=== PATIENT | female | born 1985 | race Caucasian/White ===

== ENCOUNTER 2024-12-30 16:29 | Inpatient (IN) | payer MEDICAID ==
[~2024-12-30] VITALS: Ht 170.2 cm; Wt 72.2 kg
[2024-12-30] VITALS (17 sets, daily range): BP systolic 89–128; BP diastolic 60–100
[2024-12-30 16:54] LABS: BASOPHILS ABSOLUTE AUTO 0.04 K/mm3 (0.00-0.23); BASOPHILS PERCENT AUTO 1 % (0-2); EOSINOPHILS ABSOLUTE AUTO 0.21 K/mm3 (0.00-0.68); EOSINOPHILS PERCENT AUTO 3 % (0-6); Hematocrit 33.8 % (33.0-51.0); Hemoglobin 10.4 g/dL (11.5-16.0); IMMATURE GRAN ABSOLUTE AUTO 0.01 K/mm3 (0.00-0.10); IMMATURE GRAN PERCENT AUTO 0 % (0-1); LYMPHOCYTES ABSOLUTE AUTO 2.95 K/mm3 (0.84-5.20); LYMPHOCYTES PERCENT AUTO 41 % (21-46); MONOCYTES ABSOLUTE AUTO 0.55 K/mm3 (0.16-1.47); MONOCYTES PERCENT AUTO 8 % (4-13); Mean Corpuscular HGB Conc 30.8 g/dL (31.5-36.5); Mean Corpuscular Volume 79 fL (80-100); NEUTROPHILS ABSOLUTE AUTO 3.45 K/mm3 (1.96-9.15); NEUTROPHILS PERCENT AUTO 48 % (41-73); NRBC ABSOLUTE 0.00 K/mm3 (0.00-0.02); NRBC Auto 0.0 /100 WBC (0.0-0.2); Platelet Count 337 K/mm3 (150-400); RDW Coefficient Variation 16.7 % (11.7-14.2); RDW Standard Deviation 48.5 fL (35.1-46.3)
[2024-12-30 17:21] LABS: Alanine Aminotransfer (ALT/SGP 30.0 U/L (12-78); Albumin, Blood 3.7 g/dL (3.4-5.0); Albumin/Globulin Ratio 0.9 (0.8-1.8); Anion Gap 10.0 mmol/L (3-11); Aspartate Aminotrans (AST/SGOT 32.0 U/L (12-37); Bilirubin, Total 0.4 mg/dL (0.1-1.0); Blood Urea Nitrogen 21.0 mg/dL (8-24); CO2, Blood 25.0 mmol/L (21-32); Calcium, Blood 9.2 mg/dL (8.5-10.1); Chloride, Blood 104.0 mmol/L (98-108); Creatinine, Blood 0.5 mg/dL (0.40-1.00); Globulin, Blood 3.9 g/dL (2.2-4.0); Glucose, Blood 217.0 mg/dL (70-99); Potassium, Blood 4.1 mmol/L (3.5-5.5); Sodium, Blood 135.0 mmol/L (136-145); Total Protein, Blood 7.6 g/dL (6.4-8.2)
[2024-12-30] MEDS ORDERED: Midazolam HCL 50 MG in NS 40 ML IV PRN (17:45)
[2024-12-30] MEDS ORDERED: FLU VACC TS2025-26(6MOS UP)/PF 45 MCG/0.5 ML SYRINGE IM SCH (18:25)
[2024-12-30] MEDS ORDERED: Etomidate 2MG / ML 10ML Vial XX ONE (20:12)
[2024-12-30] MEDS ORDERED: SuccINYLCHOLINE Chloride 100 MG/5 ML 5MLSYR IV ONE (20:12)
[2024-12-30] MEDS ORDERED: Midazolam HCl 1MG / ML 2ML Vial XX ONE (20:12)
[2024-12-30] MEDS ORDERED: Propofol 10mg/ml 20 ml Vial (Procedural) IV ONE (20:12)
[2024-12-30] MEDS ORDERED: Rocuronium Bromide 10 MG/ML 5ML Injection IV ONE (20:12)
[2024-12-30] MEDS ORDERED: INSULANI SC ×2 (20:21→20:22)
[2024-12-30] MEDS ORDERED: ADMELOG100 UNIT/2 SC ×2 (20:24)
[2024-12-30] MEDS ORDERED: LATUDA20 M1 PO (20:25)
[2024-12-30] MEDS ORDERED: MELA3 PO (20:25)
[2024-12-31] VITALS (44 sets, daily range): BP systolic 74–132; BP diastolic 52–95
[2024-12-31] MEDS ORDERED: Hydrogen Peroxide 1.5 % Solution MT SCH
--- NOTE | 2024-12-31 04:26 | NUR ---
SEDATION TITRATED DOWN TO PROPOFOL AT 45 MCG/KG/MIN, FENT GTT 50 MCG. PT WAS AT A RASS OF -1/-2. AFTER REPOSITIONING PT, SHE WOKE UP AND BEGAN PULLING AGAINST RESTRAINTS. MYSELF AND ANOTHER RN AT BEDSIDE. PT WAS TRYING TO TALK AROUND TUBE, WE GAVE HER A PAPER AND PEN TO TRY AND BETTER COMMUNICATE. I ASKED THE PT IF SHE RECOGNIZED HER PARTNER, SHE NODDED YES, SHE ANSWERED TO HER NAME, BUT SHOOK HER HEAD "NO: WHEN ASKED IF SHE REMEMBERED WHAT HAPPENED. I EXPLAINED TO HER THE SITUATION AND EDUCATED HER ON THE PURPOSE OF THE ET TUBE. SHE WROTE THAT SHE WAS HOT AND UNCOMFORTABLE. SHE WAS AFEBRILE. WE PLACED A COOL CLOTH ON HER HEAD AND PLACED A FAN NEAR HER. WHEN ASKED IF THAT HELPED SHE NODDED "YES". SHE AGAIN BEGAN TO QUICKLY REACH FOR ETT. SOFT RESTRAINTS WERE ON AND SHE WAS PULLING AGAINST THEM WHILE TRYING TO SCOOT HERSELF DOWN CLOSER TO HER HANDS AT ONE POINT SHE SAT COMPLETELTY UP AND TRIED TO GRAB THE TUBE. DURING THIS EVENT HER SEDATION WAS BEING TITRATED UP WITH LITTLE EFFECT. VERSED WAS RESTARTED BRIEFLY TO HELP REACH A SAFE LEVEL OF SEDATION. ONCE RASS OF -1/-2 WAS ACHIEVED, VERSED WAS TITRATED OFF AND PROPOFOL WAS BUMPED BACK DOWN TO 60 MCG/KG/MIN. PT IS NOT RESTING PEACEFULLY IN BED, TOLERATING VENT, NOT PULLING AGAINST RESTRAINTS, VSS. PARTNER IS AT BEDSIDE. SEE FLOW SHEET FOR TITRATIONS.
[2024-12-31 04:36] LABS: BASOPHILS ABSOLUTE AUTO 0.03 K/mm3 (0.00-0.23); BASOPHILS PERCENT AUTO 0 % (0-2); EOSINOPHILS ABSOLUTE AUTO 0.00 K/mm3 (0.00-0.68); EOSINOPHILS PERCENT AUTO 0 % (0-6); Hematocrit 32.2 % (33.0-51.0); Hemoglobin 9.9 g/dL (11.5-16.0); IMMATURE GRAN ABSOLUTE AUTO 0.03 K/mm3 (0.00-0.10); IMMATURE GRAN PERCENT AUTO 0 % (0-1); LYMPHOCYTES ABSOLUTE AUTO 0.87 K/mm3 (0.84-5.20); LYMPHOCYTES PERCENT AUTO 10 % (21-46); MONOCYTES ABSOLUTE AUTO 0.31 K/mm3 (0.16-1.47); MONOCYTES PERCENT AUTO 4 % (4-13); Mean Corpuscular HGB Conc 30.7 g/dL (31.5-36.5); Mean Corpuscular Volume 80 fL (80-100); NEUTROPHILS ABSOLUTE AUTO 7.15 K/mm3 (1.96-9.15); NEUTROPHILS PERCENT AUTO 85 % (41-73); NRBC ABSOLUTE 0.00 K/mm3 (0.00-0.02); NRBC Auto 0.0 /100 WBC (0.0-0.2); Platelet Count 310 K/mm3 (150-400); RDW Coefficient Variation 16.6 % (11.7-14.2); RDW Standard Deviation 48.2 fL (35.1-46.3)
--- NOTE | 2024-12-31 05:07 | NUR ---
SHIFT SUMMARY PT INTUBATED/SEDATED ON PROPOFOL 60 MCG AND FENT GTT 50 MCG. RASS -2. SEE PREVOUS NOTE FOR IN-DEPTH DETAIL OF EVENT. PT RESPONDS TO PAINFUL STIMULI. HR 70-8'S, BP STABLE, SINUS RHYTHM, VENT-AC/VC 14/40/5/30%. TOLERATING VENT, SATS >94%. OGT CLAMPED. DAVIS IN PLACE AND DRAINING CLEAR YELLOW URINE. CARE MANAGE MENT CONSULT PLACED.
[2024-12-31 05:13] LABS: Anion Gap 11.0 mmol/L (3-11); Blood Urea Nitrogen 29.0 mg/dL (8-24); CO2, Blood 22.0 mmol/L (21-32); Calcium, Blood 9.2 mg/dL (8.5-10.1); Chloride, Blood 106.0 mmol/L (98-108); Creatinine, Blood 0.63 mg/dL (0.40-1.00); Glucose, Blood 278.0 mg/dL (70-99); Potassium, Blood 4.3 mmol/L (3.5-5.5); Sodium, Blood 135.0 mmol/L (136-145)
[2024-12-31] MEDS ORDERED: Cetylpyridinium Chloride 1 EA MISC MT SCH (08:00)
[2024-12-31] MEDS ORDERED: Enoxaparin 40 MG/0.4 ML SYR SC SCH (09:00)
[2024-12-31 11:03] LABS: Ferritin, Serum 13.0 ng/mL (8-252); Total Iron Binding Capacity 428.0 ug/dL (250-450)
[2024-12-31] MEDS ORDERED: Ondansetron HCl 2 MG / ML 2ML Vial ONE (11:19)
[2024-12-31] MEDS ORDERED: Albuterol 2.5 MG/3 ML VIAL ONE (11:20)
[2024-12-31] MEDS ORDERED: Ondansetron HCl 2 MG / ML 2ML Vial IV PRN (11:25)
[2024-12-31] MEDS ORDERED: Albuterol 2.5 MG/3 ML VIAL INH PRN (11:25)
[2024-12-31] MEDS ORDERED: DiphenhydrAMINE HCl 50 MG/ML 1ML Vial IV PRN ×2 (12:20→12:40)
[2024-12-31] MEDS ORDERED: FentaNYL Citrate 50 MCG/ML 2 ML Injection IV PRN ×2 (12:20→12:40)
[2024-12-31] MEDS ORDERED: Insulin Glargine-Yfgn 100 Unit/mL 3 ML SYR SC SCH (16:00)
[2024-12-31] MEDS ORDERED: Insulin Glargine 100 Unit/ML 3 ML SYR SC SCH ×2 (16:30→21:00)
[2024-12-31] MEDS ORDERED: Insulin Regular 100 UNIT/ML 10ML Vial SC SCH ×2 (16:30)
[2024-12-31] MEDS ORDERED: Insulin Human Lispro 100 Units/ML 3ML Syringe SC SCH ×2 (16:30→18:00)
[2024-12-31] MEDS ORDERED: LURASIDONE 40 MG PO SCH (18:15)
--- NOTE | 2024-12-31 19:05 | NUR ---
SHIFT SUMMARY PT WAS SUCCESSFULLY EXTUBATED FOLLOWING SAT AT APPROX 1115, WAS STARTED ON 2L NC FOR SUPPORT AND ABLE TO TOLERATE RA SHORTLY THEREAFTER. WAS ABLE TO AMBULATE TO BEDSIDE CHAIR WITH STANDBY ASSIST. BEGAN HAVING PAIN IN LEFT PECTORAL MUSCLE POST INTUBATION AND WAS MEDICATED PER EMAR. PT COMPLAINED OF TIGHT FEELING IN THROAT AND CONCERNED ABOUT TONGUE SWELLING, WAS ASSESSED AT BEDSIDE WITH NO SWELLING NOTED. PROVIDED BREATHING TREATMENT -SEE RT NOTES. PT REMAINS ALERT AND ORIENTED, FOLLOWING DIRECTIONS WELL, MOOD AND AFFECT ARE APPROPRIATE. SATS REMAIN >95% ON RA, RESPIRATIONS ARE EVEN AND UNLABORED. HR IS SINUS IN THE 80S-90S AND BP IS STABLE WITH MAP> 65. PT IS INDEPENDENT IN ROOM. DENIES NEW CP OR SOB AT THIS TIME, DENIES UNMET NEEDS. CALL LIGHT WITHIN REACH.
[2025-01-01] MEDS ORDERED: FentaNYL Citrate 50 MCG/ML 2 ML Injection IV PRN (00:05)
[2025-01-01 01:55] VITALS: BP 120/84
[2025-01-01 04:05] LABS: BASOPHILS ABSOLUTE AUTO 0.04 K/mm3 (0.00-0.23); BASOPHILS PERCENT AUTO 0 % (0-2); EOSINOPHILS ABSOLUTE AUTO 0.03 K/mm3 (0.00-0.68); EOSINOPHILS PERCENT AUTO 0 % (0-6); Hematocrit 30.7 % (33.0-51.0); Hemoglobin 9.6 g/dL (11.5-16.0); IMMATURE GRAN ABSOLUTE AUTO 0.02 K/mm3 (0.00-0.10); IMMATURE GRAN PERCENT AUTO 0 % (0-1); LYMPHOCYTES ABSOLUTE AUTO 2.88 K/mm3 (0.84-5.20); LYMPHOCYTES PERCENT AUTO 27 % (21-46); MONOCYTES ABSOLUTE AUTO 0.77 K/mm3 (0.16-1.47); MONOCYTES PERCENT AUTO 7 % (4-13); Mean Corpuscular HGB Conc 31.3 g/dL (31.5-36.5); Mean Corpuscular Volume 80 fL (80-100); NEUTROPHILS ABSOLUTE AUTO 6.77 K/mm3 (1.96-9.15); NEUTROPHILS PERCENT AUTO 64 % (41-73); NRBC ABSOLUTE 0.00 K/mm3 (0.00-0.02); NRBC Auto 0.0 /100 WBC (0.0-0.2); Platelet Count 327 K/mm3 (150-400); RDW Coefficient Variation 17.1 % (11.7-14.2); RDW Standard Deviation 49.8 fL (35.1-46.3)
[2025-01-01 04:24] LABS: Anion Gap 9.0 mmol/L (3-11); Blood Urea Nitrogen 31.0 mg/dL (8-24); CO2, Blood 25.0 mmol/L (21-32); Calcium, Blood 8.9 mg/dL (8.5-10.1); Chloride, Blood 106.0 mmol/L (98-108); Creatinine, Blood 0.67 mg/dL (0.40-1.00); Glucose, Blood 123.0 mg/dL (70-99); Potassium, Blood 3.8 mmol/L (3.5-5.5); Sodium, Blood 136.0 mmol/L (136-145)
--- NOTE | 2025-01-01 05:05 | NUR ---
SHIFT SUMMARY PT A/OX4, PLEASANT AND COOPERATIVE WITH CARE. REMAINS ON ROOM AIR, SATS > 92%. GETTING PRN ALBUTEROL AND EPI TX FROM RT. L/S CLEAR T/O. PT REPORTS PAIN IN HER THROAT FROM ET TUBE, GETTING FENTANYL PRN WITH SOME RELIEF AND CEPACOL LOZENGES. SINUS TACH T/O SHIFT, BP STABLE. ON TELE BOX. TOLERATING PO INTAKE, NO BM THIS SHIFT. GETTING UP TO TOILET W/ ASSISTANCE FROM PARTNER IN ROOM, VOIDING W/O ISSUE. NO SKIN ISSUES. AM LABS LOOKED UNREMARKABLE. PT HAD AN EPISODE OF ANXIETY FOLLOWING HER BREATHING TREATMENT, PROVIDER ORDER FOR 1MG PO ATIVAN GIVEN. PT STATED RELIEF. NO ACUTE EVENTS, CALL LIGHT IN REACH. PARTNER AT BEDSIDE. WILL REPORT TO ONCOMING RN.
--- NOTE | 2025-01-01 08:29 | NUR ---
ASSUMPTION OF CARE... ASSUMED CARE OF PATIENT AT APPROX 0700. PATIENT ABLE TO MOVE ALL LIMBS SPONTANEOUSLY. PATIENT A&OX4 AND ABLE TO MAKE NEEDS KNOWN. HR SINUS TACH IN THE 100S. BP STABLE WITH MAPS >65. PATIENT ON RA WITH SPO2 >95%. PATIENT UP AD TED. PARTNER AT BEDSIDE.
[2025-01-01] MEDS ORDERED: Misc. Tablet PO SCH (09:00)
[2025-01-01] MEDS ORDERED: PRED20 PO (10:15)
[2025-01-01] MEDS ORDERED: EPIPEN0.3 MG/0.3 IM (10:16)
[2025-01-01] MEDS ORDERED: Norco 5-325 Ta1 EACH PO (10:18)
[2025-01-01 10:46] VITALS: BP 118/89
--- NOTE | 2025-01-01 10:47 | NUR ---
DISCHARGE NOTE THIS RN WENT OVER DISCHARGE PACKET WITH PATIENT AND PARTNER. PATIENT EDUCATED ON DISCHARGE MEDICATIONS, HOW TO USE AN EPI PEN, WHEN TO COME BACK TO THE HOSPITAL, AND AVOIDING FISH/FISH CONTAINING PRODUCTS. PATIENT TOOK ALL BELONGINGS AND HOME MEDICATION WITH HER UPON DISCHARGE. [facility]
[2025-01-01] MEDS ORDERED: DEXTROMETHORPHAN/BENZOCAINE 1 EACH LOZENGE MT PRN (23:55)
== END 2025-01-01 10:45 | disposition home or self-care (01) | DRG 915 ==
LOC: ER 16:29 → ICUE 16:30
PROVIDERS: Emergency Medicine; Family Medicine; ADMIT Hospitalist
PROC: 0BH17EZ Insertion of Endotracheal Airway into Trachea, Via Natural or Artificial Opening (ICD-10-PCS; principal; 2024-12-30)
DX: T78.03XA Anaphylactic reaction due to other fish, initial encounter (principal); J96.01 Acute respiratory failure with hypoxia; E87.1 Hypo-osmolality and hyponatremia; J98.8 Other specified respiratory disorders; E11.9 Type 2 diabetes mellitus without complications; D64.9 Anemia, unspecified; Z79.4 Long term (current) use of insulin; Z79.899 Other long term (current) drug therapy; Z88.1 Allergy status to other antibiotic agents; Z88.8 Allergy status to other drugs, medicaments and biological substances; Z91.013 Allergy to seafood
CPT/HCPCS: 31500; 36415; 51702; 71045; 80048; 80053; 82728; 82947; 83540; 83550; 85025; 93005; 93010; 94002; 94640; 94664; 94762; 96365; 96366; 96372; 96375; 96376; 99285-25; A9270; G0378; J0330; J1200; J1650; J1815; J2250; J2405; J2704; J2919; J3010